=== PATIENT | male | born 1985 | race African-American/Black ===

== ENCOUNTER 2016-08-29 12:39 | Emergency (ER) | payer SELFPAY ==
[~2016-08-29] VITALS: Ht 190.5 cm; Wt 158.8 kg
[2016-08-29 12:59] VITALS: BP 132/76
== END 2016-08-29 14:39 | disposition left against medical advice (07) ==
LOC: ER 12:48
DX: K94.03 Colostomy malfunction (principal); Z53.21 Procedure and treatment not carried out due to patient leaving prior to being seen by health care provider